=== PATIENT | female | born 1955 ===

== ENCOUNTER 2017-08-22 14:00 | Outpatient (CLI) | payer OTHER | END 2017-08-22 14:08 | disposition home or self-care (01) | LOC: RAD 14:00 | DX: C90.00 Multiple myeloma not having achieved remission (principal); R06.00 Dyspnea, unspecified ==

== ENCOUNTER 2017-08-22 14:52 | Outpatient (CLI) | payer OTHER | END 2017-08-22 15:05 | disposition home or self-care (01) | LOC: T RESPIRAT 14:52 | DX: C90.00 Multiple myeloma not having achieved remission (principal); R06.00 Dyspnea, unspecified ==

== ENCOUNTER 2017-09-12 08:31 | Outpatient (CLI) | payer OTHER ==
[2017-09-12] MEDS ORDERED: WARFARIN SODIUM5 MG (10:51)
== END 2017-09-12 09:00 | disposition home or self-care (01) ==
LOC: NUCLEAR 08:31
DX: I80.299 Phlebitis and thrombophlebitis of other deep vessels of unspecified lower extremity (principal)

== ENCOUNTER 2017-09-12 10:39 | Inpatient (IN) | payer OTHER ==
[~2017-09-12] VITALS: Ht 167.6 cm; Wt 108.9 kg
[2017-09-12] MEDS ORDERED: WARFARIN SODIUM5 MG (10:51)
[2017-09-15] MEDS ORDERED: LOVENOX80 MG/0.8 SUBCUTANEO (07:19)
[2017-09-15] MEDS ORDERED: COUMADIN5 MG PO ×2 (07:19)
[2017-09-15] MEDS ORDERED: PREDNISONE20 MG PO (07:19)
== END 2017-09-15 09:28 | disposition home or self-care (01) | DRG 841 ==
LOC: ER 10:39 → OB/GYN 13:08 → SEC-K 13:08 → OB/GYN 21:01
PROC: 30233N1 Transfusion of Nonautologous Red Blood Cells into Peripheral Vein, Percutaneous Approach (ICD-10-PCS; principal; 2017-09-12)
PROC: B246ZZZ Ultrasonography of Right and Left Heart (ICD-10-PCS; 2017-09-12)
DX: C90.01 Multiple myeloma in remission (principal); I80.12 Phlebitis and thrombophlebitis of left femoral vein; E66.01 Morbid (severe) obesity due to excess calories; D63.8 Anemia in other chronic diseases classified elsewhere; I80.03 Phlebitis and thrombophlebitis of superficial vessels of lower extremities, bilateral; D59.5 Paroxysmal nocturnal hemoglobinuria [Marchiafava-Micheli]

== ENCOUNTER 2018-04-07 21:16 | Emergency (ER) | payer OTHER ==
[~2018-04-07] VITALS: Ht 162.6 cm; Wt 136.1 kg
[~2018-04-07 21:16] MED LIST: COUMADIN5 MG PO; LOVENOX80 MG/0.8 SUBCUTANEO; PREDNISONE20 MG PO; WARFARIN SODIUM5 MG
[2018-04-07] MEDS ORDERED: DECADRON (21:31)
[2018-04-08] MEDS ORDERED: DOLOGESIC 500-1 EACH PO (03:58)
== END 2018-04-08 04:32 | disposition home or self-care (01) ==
LOC: ER 21:16
DX: R07.89 Other chest pain (principal)

== ENCOUNTER 2018-05-16 16:35 | Inpatient (IN) | payer OTHER ==
[~2018-05-16] VITALS: Ht 162.6 cm; Wt 136.1 kg
[~2018-05-16 16:35] MED LIST changes: +DECADRON; +DOLOGESIC 500-1 EACH PO
[2018-05-17] MEDS ORDERED: DEXAMETHASONE1 MG (14:08)
[2018-05-18] MEDS ORDERED: CLOTRIMAZOLE15 GM TOP (08:51)
[2018-05-18] MEDS ORDERED: XARELTO15 MG PO (08:51)
[2018-05-18] MEDS ORDERED: TRAM1TAB98 PO (08:51)
== END 2018-05-18 11:37 | disposition home or self-care (01) | DRG 813 ==
LOC: ER 16:35 → MEDJ 21:15
PROC: 30233N1 Transfusion of Nonautologous Red Blood Cells into Peripheral Vein, Percutaneous Approach (ICD-10-PCS; 2018-05-16)
PROC: 8E0ZXY6 Isolation (ICD-10-PCS; 2018-05-16)
PROC: 30233K1 Transfusion of Nonautologous Frozen Plasma into Peripheral Vein, Percutaneous Approach (ICD-10-PCS; principal; 2018-05-17)
DX: D68.32 Hemorrhagic disorder due to extrinsic circulating anticoagulants (principal); A41.9 Sepsis, unspecified organism; D62 Acute posthemorrhagic anemia; C90.00 Multiple myeloma not having achieved remission; T45.515A Adverse effect of anticoagulants, initial encounter; Y92.098 Other place in other non-institutional residence as the place of occurrence of the external cause; E66.01 Morbid (severe) obesity due to excess calories

== ENCOUNTER 2018-06-18 01:45 | Emergency (ER) | payer OTHER ==
[~2018-06-18] VITALS: Ht 162.6 cm; Wt 140.6 kg
[~2018-06-18 01:45] MED LIST changes: +CLOTRIMAZOLE15 GM TOP; +DEXAMETHASONE1 MG; +TRAM1TAB98 PO; +XARELTO15 MG PO
== END 2018-06-18 18:22 | disposition home or self-care (01) ==
LOC: ER 01:45
DX: K43.9 Ventral hernia without obstruction or gangrene (principal); K56.690 Other partial intestinal obstruction; R10.84 Generalized abdominal pain

== ENCOUNTER 2018-11-26 10:32 | Outpatient (CLI) | payer OTHER | END 2018-11-26 10:42 | disposition home or self-care (01) | LOC: MRI 10:32 | DX: M54.2 Cervicalgia (principal); M54.6 Pain in thoracic spine | CPT/HCPCS: 72141; 72146 ==